=== PATIENT | male | born 1960 | race Caucasian/White ===

== ENCOUNTER → 2023-11-24 14:34 | Outpatient (BNVA) | payer MEDICARE, SELFPAY | PROVIDERS: Family Provider Family Medicine; Visit Provider Dermatology | DX: D48.5 Neoplasm of uncertain behavior of skin (principal); L57.0 Actinic keratosis; S00.80XA Unspecified superficial injury of other part of head, initial encounter; X58.XXXA Exposure to other specified factors, initial encounter; L82.1 Other seborrheic keratosis; D18.01 Hemangioma of skin and subcutaneous tissue; L91.8 Other hypertrophic disorders of the skin; B07.8 Other viral warts; Z85.79 Personal history of other malignant neoplasms of lymphoid, hematopoietic and related tissues | CPT/HCPCS: 11102; 17004; 17110; 99204 ==

== ENCOUNTER → 2024-01-06 07:57 | Outpatient (BNVA) | payer MEDICARE, SELFPAY | PROVIDERS: Family Provider Family Medicine; Visit Provider Dermatology | DX: L57.0 Actinic keratosis (principal) | CPT/HCPCS: 96573 ==

== ENCOUNTER → 2024-02-17 09:10 | Outpatient (BNVA) | payer MEDICARE, SELFPAY | PROVIDERS: Family Provider Family Medicine; Visit Provider Dermatology | DX: L57.0 Actinic keratosis (principal) | CPT/HCPCS: 96573; J7308 ==

== ENCOUNTER → 2024-03-08 08:16 | Outpatient (BNVA) | payer MEDICARE, SELFPAY | PROVIDERS: Family Provider Family Medicine; Visit Provider Podiatrist Foot & Ankle Surgery | DX: L60.0 Ingrowing nail (principal); G62.9 Polyneuropathy, unspecified; L60.3 Nail dystrophy; B07.0 Plantar wart | CPT/HCPCS: 11750; 99204; A6219 ==

== ENCOUNTER → 2024-03-22 09:02 | Outpatient (BNVA) | payer MEDICARE, SELFPAY | PROVIDERS: Family Provider Family Medicine; Visit Provider Podiatrist Foot & Ankle Surgery | DX: L60.0 Ingrowing nail (principal); B07.0 Plantar wart; G62.9 Polyneuropathy, unspecified; L60.3 Nail dystrophy | CPT/HCPCS: 17110 ==

== ENCOUNTER → 2024-04-04 13:19 | Outpatient (BNVA) | payer MEDICARE, SELFPAY | PROVIDERS: Family Provider Family Medicine; Visit Provider Nurse Practitioner Family | DX: L57.0 Actinic keratosis (principal); L82.1 Other seborrheic keratosis; D18.01 Hemangioma of skin and subcutaneous tissue; L91.8 Other hypertrophic disorders of the skin; B07.8 Other viral warts; L57.8 Other skin changes due to chronic exposure to nonionizing radiation | CPT/HCPCS: 17004; 17110; 99214 ==

== ENCOUNTER → 2024-05-23 10:09 | Outpatient (BNVA) | payer MEDICARE, SELFPAY | PROVIDERS: Family Provider Family Medicine; Visit Provider Nurse Practitioner Family | DX: D48.5 Neoplasm of uncertain behavior of skin (principal); L57.0 Actinic keratosis; L57.8 Other skin changes due to chronic exposure to nonionizing radiation; D22.39 Melanocytic nevi of other parts of face; L81.4 Other melanin hyperpigmentation | CPT/HCPCS: 11102; 17000; 99213 ==

== ENCOUNTER → 2024-06-28 07:52 | Outpatient (BNVA) | payer MEDICARE, SELFPAY | PROVIDERS: Family Provider Family Medicine; Visit Provider Dermatology | DX: C44.329 Squamous cell carcinoma of skin of other parts of face (principal); L57.0 Actinic keratosis | CPT/HCPCS: 13132; 17000; 17311 ==

== ENCOUNTER → 2024-11-14 10:30 | Outpatient (BNVA) | payer MEDICARE, SELFPAY | PROVIDERS: Family Provider Family Medicine; Visit Provider Nurse Practitioner Family | DX: D22.39 Melanocytic nevi of other parts of face (principal); L81.4 Other melanin hyperpigmentation; Z08 Encounter for follow-up examination after completed treatment for malignant neoplasm; Z85.828 Personal history of other malignant neoplasm of skin; L57.0 Actinic keratosis | CPT/HCPCS: 17004; 99213 ==

== ENCOUNTER → 2025-01-02 12:24 | Outpatient (BNVA) | payer MEDICARE, SELFPAY | PROVIDERS: Family Provider Family Medicine; Visit Provider Dermatology | DX: L57.0 Actinic keratosis (principal) | CPT/HCPCS: 96574 ==

== ENCOUNTER → 2025-02-06 12:29 | Outpatient (BNVA) | payer MEDICARE, SELFPAY | PROVIDERS: Family Provider Family Medicine; Visit Provider Dermatology | DX: L57.0 Actinic keratosis (principal) | CPT/HCPCS: 96574 ==

== ENCOUNTER → 2025-03-20 09:36 | Outpatient (BNVA) | payer MEDICARE, SELFPAY | PROVIDERS: Family Provider Family Medicine; Visit Provider Nurse Practitioner Family | DX: D22.39 Melanocytic nevi of other parts of face (principal); L81.4 Other melanin hyperpigmentation; L57.8 Other skin changes due to chronic exposure to nonionizing radiation; L82.1 Other seborrheic keratosis; Z08 Encounter for follow-up examination after completed treatment for malignant neoplasm | CPT/HCPCS: 17000; 99214 ==

== ENCOUNTER → 2025-06-20 10:28 | Outpatient (BNVA) | payer MEDICARE, SELFPAY | PROVIDERS: Family Provider Family Medicine; Visit Provider Nurse Practitioner Family | DX: L57.8 Other skin changes due to chronic exposure to nonionizing radiation (principal); L81.4 Other melanin hyperpigmentation; D22.39 Melanocytic nevi of other parts of face; Z08 Encounter for follow-up examination after completed treatment for malignant neoplasm; Z85.828 Personal history of other malignant neoplasm of skin; L57.0 Actinic keratosis | CPT/HCPCS: 11102; 17004; 99214 ==